=== PATIENT | male | born 1975 | race Caucasian/White ===

== ENCOUNTER 2022-01-07 18:21 | Emergency (ER) | payer OTHER, SELFPAY ==
[2022-01-07 18:21] VITALS: BP 200/153; PULSE 57; RESP 16; TEMP 36.6; O2SAT 100; BMI 58.4
--- NOTE | 2022-01-07 18:51 | EX.ED.DYSGE1 ---
HPI <NIECY Coreas - Last Filed: 01/07/22 19:26> History of Present Illness Chief Complaint: GI Bleed Narrative Narrative: 46-year-old male presents with bright red blood per rectum. He states he thinks he can feel an external hemorrhoid and yesterday while having a bowel movement noticed a small amount of bright red blood. He padded the area with toilet paper several times throughout the day and there was a very small amount of continued bleeding. Today there was only some pink tinge after he wiped but he was worried because he is never had this before so he came in for evaluation. His stool is a medium brown. He denies fever, vomiting, or abdominal pain. No prior colonoscopy. PFSH <NIECY Coreas - Last Filed: 01/07/22 19:26> [facility] Medical History unable to obtain Home Medications Cetirizine Hcl [Zyrtec] 10 mg PO DAILY 07/10/14 [History Last Taken 07/06/14 08:00 10 MG] amoxicillin 875 mg-potassium clavulanate 125 mg tablet 875 mg PO Q12H ##20 07/12/14 [Rx Last Taken Unknown] oxycodone-acetaminophen 5 mg-325 mg tablet 1 - 2 tab PO Q4H PRN PRN MILD/MODERATE PAIN ##30 07/12/14 [Rx Last Taken Unknown] hydrocortisone 2.5 % topical cream with perineal applicator (Anusol-HC) 1 applic UT DAILY PRN hemorrhoids #30 grams 01/07/22 [Rx Last Taken Unknown] Allergy/AdvReac Type Severity Reaction Status Date / Time No Known Allergies Allergy Verified 01/07/22 18:23 Social History Smoking Status: Never smoker ROS <NIECY Coreas - Last Filed: 01/07/22 19:26> ROS ED ROS Narrative Constitutional: Negative for fever, chills, malaise. Eyes: Negative for visual change. ENT: Negative for sore throat, ear pain, rhinorrhea. CVS: Negative for palpitations, chest pain, syncope. Respiratory: Negative for shortness of breath, cough, orthopnea. GI: Negative for abdominal pain, nausea, vomiting, diarrhea, constipation, melena, hematochezia. : Negative for dysuria, hematuria or frequency. Neuro: Negative for headache, motor/sensory dysfunction. Skin: Negative for rash, abscess, or wound. Musc: Negative for joint pain, swelling, trauma. Heme: Negative for easy bruising, bleeding, lymphadenopathy. EXAM <NIECY Coreas - Last Filed: 01/07/22 19:26> Physical Exam Narrative Exam Narrative: CONST: Patient sitting in no acute distress. EYES: Normal inspection. NECK: Normal inspection. RESP: No respiratory distress, CTAB. CVS: Regular rate and rhythm, no murmur, no gallop. ABD: Obese abdomen is soft and nontender, no guarding or rebound, nondistended. Rectal: Thrombosed external hemorrhoid at approximately 8 o'clock position. No active bleeding. SKIN: Color normal, no rash, warm, dry, intact. EXTREMITIES: Normal appearance, no pedal edema. NEURO: Oriented x4. PSYCH: Normal affect. Const Vital Signs: 01/07/22 18:21 Temperature 97.8 F Temperature Source Temporal Pulse Rate 57 L Respiratory Rate 16 Blood Pressure 200/153 H Blood Pressure Mean 168 Pulse Ox 100 Oxygen Delivery Method Room Air <Dr. Remi Castro MD - Last Filed: 01/07/22 22:36> Physical Exam Const Vital Signs: 01/07/22 18:21 Temperature 97.8 F Temperature Source Temporal Pulse Rate 57 L Respiratory Rate 16 Blood Pressure 200/153 H Blood Pressure Mean 168 Pulse Ox 100 Oxygen Delivery Method Room Air MDM <NIECY Coreas - Last Filed: 01/07/22 19:26> [facility] MDM Narrative Medical decision making narrative: Patient has noticed some bright red rectal bleeding. There is a thrombosed external hemorrhoid at the 8 o'clock position. 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 Patient will be placed on Anusol and advised to do sitz bath's. He denies constipation but was told to use [id number] stool softeners if this develops. He is following up with his primary care on Monday who can check on this. He is asymptomatic but his BP here was 200/153 but he states its been alice high before and he did not want medication. I recommended he talk to his primary care on Monday about this as well. He was discharged in stable condition. <Dr. Remi Castro MD - Last Filed: 01/07/22 22:36> [facility] Treatment and Re-Evaluation Narrative: Seen and evaluated independently and in conjunction with physician auction assistant. Agree with notes above unless documented otherwise. Bleeding with sensation of hemorrhoid. No anticoagulants or antiplatelet medications. Agrees that it is less prominent/uncomfortable now than it was the other day before he was bleeding. Exam: Thrombosed hemorrhoid, partially collapsed, clot within it. Large clot pulled out of it, which helped see the procedure note. <Dr. Remi Castro MD - Last Filed: 01/07/22 22:36> Other Procedures Procedure(s): drainage thrombosed external hemorrhoid: Already ruptured, with clot within it. With auction assistant, was able to gently express the clots with the help of hemostats pulling it out. No complications, tolerated well. Hemorrhoid collapsed, no active bleeding. Discharge Plan Triage Chief Complaint: GI Bleed ED Midlevel Provider: Nikkie Quintanilla ED Provider: Remi Castro Dx/Rx/DC Orders Clinical Impression: External hemorrhoid, thrombosed, Accelerated hypertension Instructions: ED Hemorrhoids Prescriptions: New hydrocortisone [Anusol-HC] 2.5 % cream with perineal applicator 1 applic UT DAILY PRN (Reason: hemorrhoids) Qty: 30 0RF No Action Cetirizine Hcl [Zyrtec] 10 MG tablet 10 mg PO DAILY Label Comments: ALLERGIES oxycodone-acetaminophen 1 TABLET tablet 1 - 2 tab PO Q4H PRN PRN (Reason: MILD/MODERATE PAIN) Qty: 30 0RF Label Comments: PAIN amoxicillin-pot clavulanate 875 MG tablet 875 mg PO Q12H Qty: 20 0RF Label Comments: ANTIBIOTIC Primary Care Provider: Earle Simmons Referrals: [facility] Doctor,Out of [Non-Staff] - Activity Restrictions/Additional Instructions: Sit in warm soapy baths several times per day and use the hemorrhoid cream and follow-up with your doctor on Monday as scheduled. Disposition Disposition: Home, Self Care Discharge Date/Time: 01/07/22 19:36
== END 2022-01-07 19:36 | disposition home or self-care (01) ==
PROVIDERS: Emergency Provider Emergency Medicine; PCP Family Medicine; Visit Provider Emergency Medicine
DX: K64.5 Perianal venous thrombosis (principal); I10 Essential (primary) hypertension
CPT/HCPCS: 99282